=== PATIENT | female | born 1995 | race Two or more races ===

== ENCOUNTER 2023-06-10 13:12 | Emergency (ER) | payer OTHER ==
[~2023-06-10] VITALS: Ht 160 cm; Wt 92.0 kg
[2023-06-10 13:24] VITALS: BP 145/85; PULSE 93; RESP 17; O2SAT 96
[2023-06-10 13:50] LABS: Urine Bacteria NONE SEEN /hpf (None Seen); Urine Blood 3+ /uL (Negative); Urine Clarity Clear (Clear); Urine Color Yellow (Yellow); Urine Mucus FEW (None Seen); Urine Protein, UAD TRACE (Negative); Urine Specific Gravity 1.021 (1.001-1.035); Urine Urobilinogen Normal (Negative); Urine WBC 4 /hpf (0 - 5); Urine pH 5.5 (5.0-8.0)
[2023-06-10 14:05] LABS: Alanine Aminotransferase 12 U/L (7-40); Albumin 4.5 g/dL (3.2-4.8); Alkaline Phosphatase 89 U/L (46-116); Anion Gap 7 (5-15); Aspartate Aminotransferase 22 U/L (13-40); BUN/Creatinine Ratio 13.4 (10.0-20.0); Bilirubin, Total 0.6 mg/dL (0.2-1.0); Blood Urea Nitrogen 9 mg/dL (9-23); Calcium 9.5 mg/dL (8.5-10.1); Carbon Dioxide 28 mmol/L (20-30); Chloride 106 mmol/L (98-107); Glucose 109 mg/dL (74-106); Potassium 3.8 mmol/L (3.5-5.1); Sodium 141 mmol/L (136-145); Total Protein 6.9 g/dL (5.7-8.2)
[2023-06-10 14:09] LABS: INR 1.03 (0.9-1.15); Partial Thromboplastin Time 29.1 SEC (24.5-34.5); Prothrombin Time 10.8 sec (9.3-11.8)
[2023-06-10] MEDS ORDERED: NITR-87 PO (15:18)
== END 2023-06-10 16:35 | disposition home or self-care (01) ==
LOC: ER 13:12
DX: O23.41 Unspecified infection of urinary tract in pregnancy, first trimester (principal); R10.2 Pelvic and perineal pain; O20.8 Other hemorrhage in early pregnancy; N39.0 Urinary tract infection, site not specified; Z3A.01 Less than 8 weeks gestation of pregnancy
CPT/HCPCS: 36415; 80053; 81001; 84702; 85610; 85730

== ENCOUNTER 2023-06-30 21:01 | Emergency (ER) | payer OTHER ==
[~2023-06-30] VITALS: Ht 160 cm; Wt 95.5 kg
[~2023-06-30 21:01] MED LIST: NITR-87 PO
[2023-06-30 21:16] VITALS: BP 147/82; PULSE 18; RESP 18; TEMP 97.9; O2SAT 97
[2023-06-30 22:17] LABS: Basophils # (auto) 0 10 ^3/uL (0-0.2); Basophils % (auto) 0.3 % (0.0-2.0); Eosinophils # (auto) 0.1 10 ^3/uL (0-0.8); Eosinophils % (auto) 1.2 % (0.0-7.0); Hematocrit 40.2 % (36.0-46.0); Hemoglobin 13.3 g/dL (12.2-16.2); Lymphocytes # (auto) 2.4 10 ^3/uL (0.4-5.4); Lymphocytes % (auto) 27.5 % (10.0-50.0); Mean Corpuscular Hemoglobin 32.2 pg (28.0-32.0); Mean Corpuscular Hgb Conc. 33.2 g/dL (32.0-36.0); Mean Corpuscular Volume 97.1 fL (80.0-100.0); Monocytes # (auto) 0.5 10 ^3/uL (0-1.3); Monocytes % (auto) 5.3 % (0.0-12.0); Neutrophils # (auto) 5.7 10 ^3/uL (1.6-8.6); Neutrophils % (auto) 65.7 % (37.0-80.0); Red Blood Cells 4.14 10^6/uL (4.0-5.20); Red Cell Distribution Width 12.7 % (11.8-14.3); White Blood Cell 8.6 10^3/uL (4.4-10.8)
[2023-06-30 22:22] LABS: Chloride 107 mmol/L (98-107); Sodium 142 mmol/L (136-145)
[2023-06-30 22:23] LABS: Anion Gap 8 (5-15); Carbon Dioxide 27 mmol/L (20-30)
[2023-06-30 22:24] LABS: Calcium 9.7 mg/dL (8.5-10.1)
[2023-06-30 22:28] LABS: Glucose 99 mg/dL (74-106)
[2023-06-30 22:29] LABS: BUN/Creatinine Ratio 13.4 (10.0-20.0); Blood Urea Nitrogen 9 mg/dL (9-23)
== END 2023-06-30 23:18 | disposition home or self-care (01) ==
LOC: EDBD 21:01 → ER 21:01
DX: O99.412 Diseases of the circulatory system complicating pregnancy, second trimester (principal); R00.2 Palpitations; Z79.899 Other long term (current) drug therapy; Z3A.16 16 weeks gestation of pregnancy
CPT/HCPCS: 36415; 80048; 85025; 93005

== ENCOUNTER 2023-12-09 16:24 | Emergency (ER) | payer MEDICAID, OTHER ==
[~2023-12-09] VITALS: Ht 160 cm; Wt 95.0 kg
[2023-12-09 16:39] VITALS: BP 108/57; PULSE 75; RESP 16; O2SAT 96
== END 2023-12-09 18:01 | disposition left against medical advice (07) ==
LOC: ER 16:24
DX: R51.9 Headache, unspecified (principal); Z53.21 Procedure and treatment not carried out due to patient leaving prior to being seen by health care provider